=== PATIENT | female | born 1980 | race Caucasian/White ===

== ENCOUNTER 2018-07-20 05:42 | Observation (INO) | payer BC ==
[2018-07-14 09:12] VITALS: BMI 26.2
--- NOTE | 2018-07-19 17:26 | P.HPOB ---
History of Present Illness H&P Date: 07/19/18 Chief Complaint: Menorrhagia and pelvic pain Patient is a 37-year-old female who has heavy vaginal bleeding with increasing irregularity and large clots over the last 6 months. Symptoms of progressive point where she is unable to function. In discussion with her with passage of silver dollar or light larger size clots we reviewed the possibility of treatments of either a NovaSure or a hysterectomy. She had previously seen a gynecologic oncologist for this who recommended hysterectomy. She does have a hypercoagulable state with factor V Leiden mutation as well as being homozygous for MTF HR. She is not a candidate therefore for hormonal management. During attempts at IUD insertion she was also perforated twice as well as an endometrial biopsy that appeared to show adenomyosis. She is not a good candidate therefore for NovaSure either. She is scheduled for a robotic- assisted laparoscopic hysterectomy possible JACY possible BSO. Due to her prior surgeries including a dermoid surgery as well as a section she is aware that she is an increased risk for damage to the bladder or bowel as well as vascular injuries nerve injuries or ureteral injuries. Questions were answered for her prior to proceeding to the operating room. Past Medical History Additional Past Medical History / Comment(s): MIGRAINE HEADACHES, FACTOR 5 and MTHFR clotting disorders, Lupus , neck injury C 5-6 History of Any Multi-Drug Resistant Organisms: None Reported Past Surgical History: Appendectomy, Section, Cholecystectomy, Tubal Ligation Additional Past Surgical History / Comment(s): OVARIAN CYST REMOVED, UTERINE REPAIR,EXPLORATORY LAP Past Anesthesia/Blood Transfusion Reactions: Motion Sickness, Postoperative Nausea & Vomiting (PONV) Smoking Status: Former smoker - Past Family History Mother Family Medical History: No Reported History Father History Unknown: Yes Family Medical History: CVA/TIA, Deep Vein Thrombosis (DVT) Medications and Allergies Home Medications Medication Instructions Recorded Confirmed Type Diazepam [Valium] 5 mg PO TID 03/28/18 07/14/18 History Acetaminophen [Tylenol] 325 mg PO Q4H 07/14/18 07/14/18 History Ibuprofen [Motrin] 600 mg PO BID 07/14/18 07/14/18 History Lisdexamfetamine Dimesylate 50 mg PO QAM 07/14/18 07/14/18 History [Vyvanse] valACYclovir HCL [Valtrex] 1,000 mg PO QAM 07/14/18 07/14/18 History Allergies Allergy/AdvReac Type Severity Reaction Status Date / Time cephalexin [From Keflex] Allergy Rash/Hives Verified 07/14/18 09:00 levofloxacin [From Levaquin] Allergy Rash/Hives, Verified 07/14/18 09:00 SOB propranolol [From Inderal LA] Allergy TONGUE Verified 07/14/18 09:00 SWELLING, SOB Sulfa (Sulfonamide Allergy Rash/Hives Verified 07/14/18 09:00 Antibiotics) tape AdvReac skin Uncoded 07/14/18 09:30 blisters Exam Osteopathic Statement: *. No significant issues noted on an osteopathic structural exam other than those noted in the History and Physical/Consult. - OBG Physical Exam Breast: both: normal (no masses) Abdomen: bowel sounds normal, no diffuse tenderness, no bruit present, no guarding noted, no hepatomegaly, no splenomegaly, no mass Vulva: both: normal Vagina: normal moisture, no discharge Cervix: no lesion, no discharge Uterus: normal size, normal contour Adnexa: both: normal Anus/Rectum: normal perianal skin, no rectal mass, no hemorrhoids, heme negative
[~2018-07-20 05:42] MED LIST: DEXAMETHASONE SOD PHOSPHATE 10 MG/ML 1 ML VIAL IV ONE; LIDOCAINE 1% 20 ML VIAL (10MG/ML) FOR IV START INTRADERMA PRN; MIDAZOLAM 2 MG/2 ML VIAL IV PRN; ONDANSETRON 4 MG/2 ML VIAL IVP ONE; ceFAZolin IN SWFI 2 GM/20 ML SYRINGE IVP ONE; fentaNYL (PF) 50 MCG/ML 2 ML AMP IV PRN
[2018-07-20] MEDS: LACTATED RINGERS 1,000 ML IV SCH ×3 (06:28→18:19)
[2018-07-20] MEDS ORDERED: LACTATED RINGERS 1,000 ML IV ONE (06:28)
[2018-07-20 06:49] LABS: Basophils # (A) 0.1 k/uL (0-0.2); Basophils % (A) 1 %; Eosinophils # (A) 0.4 k/uL (0-0.7); Eosinophils % (A) 5 %; HCT 40.6 % (34.0-46.0); HGB 13.4 gm/dL (11.4-16.0); Lymphocytes # (A) 2.6 k/uL (1.0-4.8); Lymphocytes % (A) 36 %; MCH 30.7 pg (25.0-35.0); MCHC 32.9 g/dL (31.0-37.0); MCV 93.4 fL (80.0-100.0); Mean Platelet Volume 6.9; Monocytes # (A) 0.3 k/uL (0-1.0); Monocytes % (A) 4 %; Neutrophils # (A) 3.8 k/uL (1.3-7.7); Neutrophils % (A) 53 %; Platelet Count 290 k/uL (150-450); RBC 4.35 m/uL (3.80-5.40); RDW 12.9 % (11.5-15.5); WBC 7.3 k/uL (3.8-10.6)
[2018-07-20 06:56] LABS: Partial Thromboplastin Time 22.5 sec (22.0-30.0); Prothrombin Time 9.5 sec (9.0-12.0)
[2018-07-20] MEDS ORDERED: fentaNYL (PF) 50 MCG/ML 2 ML AMP ONE (07:39)
[2018-07-20] MEDS ORDERED: SUCCINYLCHOLINE CHLORIDE 100 MG/5 ML SYR IV ONE (07:39)
[2018-07-20] MEDS ORDERED: KETOROLAC 30 MG/ML 1 ML VIAL ONE (07:39)
[2018-07-20] MEDS ORDERED: PROPOFOL 10 MG/ML 20 ML VIAL IV ONE (07:39)
[2018-07-20] MEDS ORDERED: HYDROmorphone (PF) 1 MG/ML ONE (07:39)
[2018-07-20] MEDS ORDERED: NEOSTIGMINE 1 MG/ML 10 ML VIAL ONE (07:39)
[2018-07-20] MEDS ORDERED: MIDAZOLAM 2 MG/2 ML VIAL ONE (07:39)
[2018-07-20] MEDS ORDERED: GLYCOPYRROLATE 0.2 MG/ML 2 ML VIAL ONE (07:39)
[2018-07-20] MEDS ORDERED: ROCURONIUM BROMIDE 10 MG/ML 10 ML VIAL IV ONE (07:39)
[2018-07-20] MEDS ORDERED: BUPIVACAINE (PF) 0.25% 30 ML VIAL SQ ONE ×2 (08:35→09:00)
[2018-07-20] MEDS ORDERED: SIMETHICONE 80 MG CHEWABLE PO PRN (09:19)
[2018-07-20] MEDS ORDERED: ONDANSETRON 4 MG/2 ML VIAL IVP PRN (09:19)
--- NOTE | 2018-07-20 09:26 | P.OP ---
Date of Procedure: 07/20/18 Preoperative Diagnosis: Menorrhagia and pelvic pain Postoperative Diagnosis: Same Procedure(s) Performed: Robotic-assisted laparoscopic hysterectomy Anesthesia: SONY Surgeon: Jeffry Carpio Study Hall Supervisor #1: Shari Griffin Estimated Blood Loss (ml): 50 IV fluids (ml): 800 Urine output (ml): 50 Pathology: other (Uterus and cervix) Condition: stable Disposition: floor Operative Findings: Normal ovaries are noted. Left ovary is attached to omentum and bowel secondary to prior surgery as this was not causing problems it was left alone. Description of Procedure: Patient was taken to the operating suite where a general anesthetic was found be adequate. She was prepped and draped in the normal sterile fashion placed in dorsal lithotomy position. Initially a weighted speculum was inserted into the vagina and the anterior lip of the cervix was identified and grasped with an seen into tenaculum. Cervix then sounded to 8 cm and dilated. Sutures were placed at 3 and 9 and the Angie manipulator with a 3 center cup was placed. Once this was accomplished other instruments were removed from vagina and the Luis catheter was placed. Gloves were then changed and attention was turned to abdominal portion procedure where a 8 mm skin incision was made 2 cm above the umbilicus. It was made above the umbilicus and the situation due to prior vertical incision and unknown scarring to that level. Once incision was made camera was inserted without difficulty under direct visualization with an optical trocar and sleeve. Once peritoneal placement was assured gas was allowed to fully insufflate the abdomen and patient was then placed a very steep Trendelenburg position. 2 lateral ports were then placed in same line as the umbilicus approximately 10 cm lateral to the umbilicus. These were inserted through 8 mm skin incision under direct visualization. Fourth port and sleeve was then inserted between the left lateral and the medial port through a 1 cm incision. Once this was placed camera port was exchanged for robotic port and robot was brought in and docked. Once fully docked using a [place] grasper in the 2 arm and a Metzenbaum in the one arm I did break scrub and go to the console. Observations [place] noted and uterus was elevated and tipped to the right side. The left utero-ovarian ligament was identified cauterized and transected. Fallopian tube and mesosalpinx were then cauterized and transected to the round ligament which was also cauterized transected and then the anterior and posterior leafs broad ligament were developed. Once this was accomplished uterus was laced in a retroverted position and I did undermining the bladder flap using the [place] undermining and the incision the scissor to incise across the face the uterus dissecting the bladder out of the operative field. Once this was accomplished right side of the uterus was developed in similar fashion to the left. Vascular was then cauterized and the balloon was blown up on the manipulator. Anterior colpotomy was then made and then following the cup in a counterclockwise fashion cheating head when necessary to maintain excellent hemostasis the cervix and uterus were from the vagina. Once 3 and 60 had been accomplished uterus was brought down into the vagina to maintain pneumoperitoneum. Pedicles were verified for hemostasis and then once this was accomplished pelvis was irrigated. And instruments were then exchanged for a make suture cut and a cardia grasper and the vaginal cuff was closed in running fashion with to OB lock suture. Once this was accomplished no bleeding is noted therefore else's reirrigated and all incidents removed. Gas was allowed to expel from the abdomen and 5 deep breaths were provided during this process. Incisions were then closed with 4-[address] Calderon, and at this point I did do a cystoscopy with good flow noted from both ureteral jets. All instruments were then removed sponge, lap, needle counts were all correct 2. Patient was then taken to recovery room in stable and satisfactory condition.
[2018-07-20] MEDS ORDERED: HYDROmorphone 1 MG/ML 1 ML SYRINGE IVP ONE ×2 (09:45→10:00)
[2018-07-20] MEDS: KETOROLAC 30 MG/ML 1 ML VIAL IVP PRN ×2 (13:10→18:20)
[2018-07-20] MEDS: Acetaminophen-Codeine 300-30mg TAB PO PRN ×2 (15:06→20:42)
[2018-07-20] MEDS: ONDANSETRON 4 MG/2 ML VIAL IVP PRN ×2 (15:07→20:42)
[2018-07-20] MEDS: HEPARIN SODIUM,PORCINE 5,000 UNIT/ML 1 ML VIAL SQ SCH (17:29)
[2018-07-20] MEDS: SENNOSIDES-DOCUSATE SODIUM 1 EACH TAB PO SCH (20:43)
[2018-07-21] MEDS: KETOROLAC 30 MG/ML 1 ML VIAL IVP PRN ×2 (00:15→08:40)
[2018-07-21] MEDS: Acetaminophen-Codeine 300-30mg TAB PO PRN ×3 (02:19→12:05)
[2018-07-21] MEDS: ONDANSETRON 4 MG/2 ML VIAL IVP PRN (02:19)
[2018-07-21] MEDS: HEPARIN SODIUM,PORCINE 5,000 UNIT/ML 1 ML VIAL SQ SCH (05:56)
[2018-07-21] MEDS: SENNOSIDES-DOCUSATE SODIUM 1 EACH TAB PO SCH (08:39)
[2018-07-21 08:40] VITALS: BP 94/58; PULSE 76; RESP 16; TEMP 98.5
--- NOTE | 2018-07-21 08:54 | P.DS ---
Providers Date of admission: 07/20/18 17:16 Expected date of discharge: 07/21/18 Attending physician: Jeffry Carpio Primary care physician: [facility] Course: Patient is doing very well postop day 1. She is involuting, voiding, and she is tolerating her diet. She voices no complaints. Vital signs are stable and afebrile. Heart regular, lungs clear, extremities without pain. Abdomen is soft and she has positive bowel sounds. Her incisions are otherwise clean dry and intact. Assessment postop day 1. Plan discharged home follow up with me in 1 week. Prescription for Tylenol 3 and Motrin was sent to the pharmacy. All the questions were answered for her at this time. She is aware to have no heavy lifting, limit stairs and driving and in particular complete pelvic rest. She will follow up with me in 1 week. Patient Condition at Discharge: Good Plan - Discharge Summary Discharge Rx Participant: No New Discharge Prescriptions: New Acetaminophen-Codeine 300-30mg [Tylenol #3] 1 tab PO Q4H PRN #30 tablet PRN Reason: Pain Ibuprofen [Motrin] 600 mg PO Q6HR PRN #30 tab PRN Reason: Pain No Action Diazepam [Valium] 5 mg PO TID valACYclovir HCL [Valtrex] 1,000 mg PO QAM Ibuprofen [Motrin] 600 mg PO BID Lisdexamfetamine Dimesylate [Vyvanse] 50 mg PO QAM Acetaminophen [Tylenol] 325 mg PO Q4H Discharge Medication List Diazepam [Valium] 5 mg PO TID 03/28/18 [History] Acetaminophen [Tylenol] 325 mg PO Q4H 07/14/18 [History] Ibuprofen [Motrin] 600 mg PO BID 07/14/18 [History] Lisdexamfetamine Dimesylate [Vyvanse] 50 mg PO QAM 07/14/18 [History] valACYclovir HCL [Valtrex] 1,000 mg PO QAM 07/14/18 [History] Acetaminophen-Codeine 300-30mg [Tylenol #3] 1 tab PO Q4H PRN #30 tablet [Rx] Ibuprofen [Motrin] 600 mg PO Q6HR PRN #30 tab 07/21/18 [Rx] Follow up Appointment(s)/Referral(s): Jeffry Carpio DO [Doctor of Osteopathic Medicine] - 1 Week Activity/Diet/Wound Care/Special Instructions: No heavy lifting, limit stairs and driving, complete pelvic rest. If any high temperatures, heavy bleeding, or severe pain call my office Discharge Disposition: HOME SELF-CARE
[2018-07-21 09:00] LABS: Basophils % (A) 0 %; Eosinophils # (A) 0.4 k/uL (0-0.7); Eosinophils % (A) 3 %; HCT 33.3 % (34.0-46.0); HGB 11.2 gm/dL (11.4-16.0); Lymphocytes # (A) 2.4 k/uL (1.0-4.8); Lymphocytes % (A) 22 %; MCH 32.1 pg (25.0-35.0); MCHC 33.6 g/dL (31.0-37.0); MCV 95.4 fL (80.0-100.0); Mean Platelet Volume 7.2; Monocytes # (A) 0.4 k/uL (0-1.0); Monocytes % (A) 4 %; Neutrophils # (A) 7.7 k/uL (1.3-7.7); Neutrophils % (A) 70 %; Platelet Count 228 k/uL (150-450); RBC 3.49 m/uL (3.80-5.40)
== END 2018-07-21 12:20 | disposition home or self-care (01) ==
LOC: OR 05:42 → 6PED 09:00 → OR 17:21
PROVIDERS: ADMIT Obstetrics & Gynecology; ATTEND Obstetrics & Gynecology
DX: N72 Inflammatory disease of cervix uteri (principal); N92.0 Excessive and frequent menstruation with regular cycle; R10.2 Pelvic and perineal pain; D68.51 Activated protein C resistance; E72.12 Methylenetetrahydrofolate reductase deficiency; G43.909 Migraine, unspecified, not intractable, without status migrainosus; M32.9 Systemic lupus erythematosus, unspecified; Z79.899 Other long term (current) drug therapy; Z88.1 Allergy status to other antibiotic agents; Z88.2 Allergy status to sulfonamides; Z88.8 Allergy status to other drugs, medicaments and biological substances; Z91.048 Other nonmedicinal substance allergy status; Z87.828 Personal history of other (healed) physical injury and trauma; Z90.89 Acquired absence of other organs; Z90.49 Acquired absence of other specified parts of digestive tract; Z98.51 Tubal ligation status; Z87.891 Personal history of nicotine dependence; Z83.2 Family history of diseases of the blood and blood-forming organs and certain disorders involving the immune mechanism; Z82.3 Family history of stroke
CPT/HCPCS: 81025; 85025; 85610; 85730; 86850; 86900; 86901; 88307